=== PATIENT | female | born 1970 | race Caucasian/White ===

== ENCOUNTER 2020-08-04 03:40 | Emergency (ER) | payer BC, OTHER ==
[~2020-08-04] VITALS: Ht 172.7 cm; Wt 69.0 kg
--- NOTE | 2020-08-04 04:16 | NUR ---
PT C/O OF FEVER/CHILL, LOSS OF TASTE AND SMELL, HEADACHE, APPETITE LOSS AND INCONTINENCE. PT STATES SHE TESTED POSITIVE WITH COVID LAST TUESDAY. SX BEGAN LAST TUESDAY. NADN. ATTACHED TO CARD/SP02/BP MONITORS. VSS. BED IN LOW POSITION, RAILS ENGAGED. CALL LIGHT WITHIN REACH. WCTM
[2020-08-04] MEDS ORDERED: KETOROLAC 30 MG/1 ML ONE (04:21)
[2020-08-04] MEDS ORDERED: ACETAMINOPHEN 500 MG TABLET ONE (04:21)
[2020-08-04] MEDS ORDERED: DEXAMETHASONE 4 MG/ML, 1ML ONE (04:21)
[2020-08-04] MEDS ORDERED: SODIUM CHLORIDE FLUSH 10ML SYR IVF ONE (04:30)
[2020-08-04] MEDS ORDERED: SODIUM CHLORIDE 0.9% 1,000ML IVBOLUS ONE (04:30)
[2020-08-04] MEDS ORDERED: DEXAMETHASONE 4 MG/ML, 1ML IVPush ONE (04:30)
[2020-08-04] MEDS ORDERED: KETOROLAC 30 MG/1 ML IVPush ONE (04:30)
[2020-08-04] MEDS ORDERED: ACETAMINOPHEN 500 MG TABLET PO ONE (04:30)
--- NOTE | 2020-08-04 04:41 | NUR ---
Patient is resting comfortably in bed. Bed in lowest, rails engaged, call light on lap. Vital Signs within normal limits. WCTM.
[2020-08-04 05:32] VITALS: BP 125/62
--- NOTE | 2020-08-04 05:32 | NUR ---
PT RESTING IN BED. NADN. PT CONDITION UNCHANGED. WCTM. VSS
--- NOTE | 2020-08-04 06:03 | NUR ---
Task RN: discharge instructions given. All questions and concerns addressed. Patient ambulatory with a steady gait. Belongings with patient.
== END 2020-08-04 06:08 | disposition home or self-care (01) ==
LOC: ED 06:02
DX: U07.1 COVID-19 (principal); J12.82 Pneumonia due to coronavirus disease 2019; R94.31 Abnormal electrocardiogram [ECG] [EKG]
CPT/HCPCS: 71045; 93005; 96361; 96374; 96375; 99284; J1100; J1885; J7030